=== PATIENT | female | born 1965 | race Caucasian/White ===

== ENCOUNTER 2024-01-15 16:01 | Outpatient (OUT) | payer BC, SELFPAY | END 2024-01-15 16:02 | disposition home or self-care (01) | LOC: SLEEP 16:01 | PROVIDERS: PCP Family Medicine; Visit Provider Family Medicine | DX: G47.33 Obstructive sleep apnea (adult) (pediatric) (principal) | CPT/HCPCS: 95806 ==

== ENCOUNTER 2024-02-20 20:59 | Outpatient (OUT) | payer BC, SELFPAY ==
--- OUTSIDE RECORDS SUMMARY | 2024-02-20 21:04 | XMS_ITS ---
Patient Summarization (C-CDA 2.1 CCD) Created on: February 20, 2024 ANTOINETTE SAVAGE : 1965 Sex: Female Author Organization Sample organization Care Team Providers Care Digester Name Role Phone Garrett Crowe Unavailable Unavail able *SELF, REFERRED Unavailable Unavailable Debbie Valencia Unavailable Unavailable Garrett Crowe Unavailable Unavail able Debbie Valencia Unavailable Unavailable Garrett Crowe Unavailable Unavail able Debbie Valencia Unavailable Unavailable DINORA JULES Referring Unavailable DEBBIE VALENCIA Primary Care Unavailable DEBBIE VALENCIA Attending Unavailable DEBBIE VALENCIA Attending Unavailable DEBBIE VALENCIA Referring Unavailable DEBBIE VALENCIA Referring Unavailable DEBBIE VALENCIA Primary Care Unavailable DEBBIE VALENCIA Attending Unavailable DEBBIE VALENCIA Admitting Unavailable Allergies Allergy Classification Reported Allergen(s) Allergy Type Date of Onset Reaction(s) Facility (1 source) Shellfish; Translations: [shellfish] Propensity to adverse reactions to food (disorder) [facility] Repository (1 source) Sulfamethoxazole ; Translations: [sulfamethoxazol e] Drug Allergy [facility] (1 source) MSG; Translations: [MSG] Propensity to adverse reactions to food (disorder) [facility]ository Encounters Encounter Date Encounter Type Care Provider Facility Start: 01-02-2024 ambulatory DEBBIE VALENCIA Facil ity:[facility] Start: 01-01-2024 End: 01-02-2024 ambulatory DEBBIE VALENCIA Not Available Start: 12-26-2023 End: 12-27-2023 ambulatory DEBBIE VALENCIA Not Available Start: 12-07-2023 End: 12-08-2023 ambulatory [facility] Start: 12-07-2023 Encounter for gynecological examination (general) (routine) without abnormal findings [facility] Start: 11-14-2023 End: 11-14-2023 ambulatory DEBBIE VALENCIA Not Available Start: 04-30-2018 Patient encounter Garrett Crowe Facility:[facility] Start: 04-30-2018 Patient encounter Garrett Crowe Facility:[facility] Payers Date Payer Category Payer Unknown [id number] 1965 Unknown [id number] 2.16.8 [id number] 1965 Unknown [id number] 2.16.84 [id number] 1965 Unknown [id number] 2.16.84 [id number] 1965 Unknown [id number] 2.16.84 [id number] 1965 Unknown [id number] 2.16.84 [id number] 1965 Unknown [id number] 2.16.84 [id number] 1965 Unknown [id number] 2.16.8 [id number] Problems Active Problems Problem Classification Problem Date Documented Date Episodic/Chronic Immunizations and screening for infectious disease (1 source) Encounter for screening for human papillomavirus (HPV); Translations: [Encounter for screening for human papillomavirus (HPV)] Onset: 12-07-2023 Episodic Unclassified (2 sources) Pain in right lower leg / M79.661(ICD-10) Onset: 04-30-2018 Unclassified (2 sources) Pain in right knee / M25.561(ICD-10) Onset: 04-30-2018 Past or Other Problems Problem Classification Problem Date Documented Da te Episodic/Chronic Unclassified (1 source) Pain in right lower leg; Translations: [Pain in right lower leg] Onset: 04-30-2018 Unclassified (1 source) Pain in right knee; Translations: [Pain in right knee] Onset: 04-30-2018 Results Test Name Value Interpretation Reference Range Facility Coding Summaryon 01-04-2024 Coding Summary HTMLBase 64 NecmpoimXYm9xUf+PGhlYWQ+TW0GLIQmP3 3hwYMbgX2qB6OBYXuRKgdlJGYPMIsJYfUe kjSkAO6roYZzCZWr IC8+CK7rXPYpOmtnySDgw7P8iGF9A75tls 9uUXuetIA0HDYcWnVlbmesa5ldhMj8GYef NmluOyBt QQZlrW93DJN8rY23Oo90kGUfxKHjn7raqO x5IpPqXWCaNWC9jFtcPJwvf5FxULTsZ78d eDXxc7R2 BIKaeBvubNFrRpIaaDX6rF6oYNngrorss1 pufepfKww0to32aLTio4O9nPZ9W2ApadM3 IGJvbGQg DsvbcOCNsP3ibqebm7bujzkgDfTqGIVfZL a7VJl1YGNvpFbhIhFtOE97CPF4SHLlipCn T2AdEDUr nHxfPdJ5t0A0Wc7AJ5CBWxvgD3RZOINJOY wvdGQ+XS16cs61W9ZlDxsfGpa4GHMrFYM4 vJI4kA6h PCZkMExup8Z2iQP8N4ElrrWffm4dz1pkUU BmDKxjG84arPPnl5X0KLOotCL1RCZubFna SzDkqA97 Oyc+NPJxuUkvu8UmAhwil2dil1ozxAb9Pc ifFJQykwBflQzcTFF4n7OhKo9tDFKdhXZ5 yPK5lF6a NnQlRiU2KMcrD904DxEgbZWgCftsX40kE4 JvdXA+YDXgJaa9KATejGzfLB0mZ3QcUKUn bmctbGVm yCppDW5fTWIyfmksTWWanC3eCBLaH5x0Gc MoEeE1PZnjS8JzORVxbhkyFp31rT4rVlNd OcC5BCrq Q7YbjwQ0XLRoxRVkEKcfPBZ1Z61uu0R8KG AqAAGyTRV3tJY5iM9ksWprpsqytTQwpHaq dmVydGlj LUgqBSsyR135MCTntEoyAhTpISbqWqWUDD RlOiAgMDQvMTgvMjAyNDwvdGQ+PHRkIHN0 eWxlPSAn bWXqNUtxYi6feYmabAyxQM4hGROuerjkED XehW8sLAHgpOWdaKlzIF2yRXTkubcnu703 OiAxMHB0 ZJIvmLJbX2QwhE3yWlEdDHIdTTUaR0VelI OmQXtmN955XCjsWtE4TIZejxZvF8WoARUk aWduOiB0 n7P0Wv0Hl6XermmnF8NdoCNlGoZwWzqxMK f9K6IwAleneEO+YI84PABaDX93CKb7ONJ5 eWxlPSdi SDVsB9YeqN4vXcWqHIBwZBIaBfc+PHRhYm ofWMfwWFGiSRymVBJwZwFpuNgqKN1tAr0e ZGVyLWNv tKbpaBQmIpFqj2wdWFUyHDpoWW7emGssM9 EtpLN9YLFjk7j5Fn68H87dH2GzeRW+PGNv xMY4oCB3 cA7oIbYeBqP8WNlbE899XaHpwEAtNkxrf1 swi7mazAq3DeG1LCFjfrPimGrhKOY0g3Gx Ol60K31g DGnjGNWgHKWxQIFlVPIahChrrd7udI4eNg 8+STZvrLN5nHO2vN0uHbGyCtI7WCizE793 InRvcCIv Euynt0ybu3yrsEx7PrAeBINoouVphTmuLO Y0a0HpOj82G8SphNpov5FgRph7mw24uFFi n3D1kZZ5 C0FdPVHajstdiKSthLgdEJ4pPGVysheeUU PznM8wZUSoI5o1SfMiBcL4QFbiN1QuaeH5 IGJvbGQg SNJamJHAoT8kgtjta7dvmmtlLrBrWFMlVS o8TKt5TXCxxFmtQkDdRKM2FsJ7XBT1pJIw dV7tkAzi qksggU8fMvi+CKB3fAAzkHLBQV5oYcljmN Q+PROqVKP6tHvhUTmiSCCcoV8aZULdG7g8 OiAwLjA1 LHyrC7SyahH5GKThkUTyIFKchWGXsW2kup xzb3trhurrPwEfBUPfKYq4QBn3EZKneHtq OiBsZWZ0 XcA5QOC1fYKwhA2baGnjbnghvS9iTyf+Qm hzwYnzDST8HHb9Z2FjIzg9FONrzJvlGW8p cGFkZGlu Jp5ygOcooVrbTY9qTTBsjtncu239AxPev3 qtQZSkoOCzHRdlDSW1D97xc0B4OJWmLZOm QHI7dWJ2 jQ7ozKthbtkuvRJwaTmvwzOglKeyWMbjNH mdU463ECQdjJoqEfZhVIb1H0EhWcy1RNSn sFmqSX6d kXWhRLqrBn7ijBhhzInfVN0fFYXlrjfud8 97ZhElk6dbYVKiyVNtJKxyZYG9R80pc7N7 ICMwMDAw HFU3fZY5jP2mkRmbqwsixHJrjDpsixBrwT neATrfOUknQ581AVErmDvkOrZtlRj5J0Zl Dov4SYFv qXwzOV1cvADsBBfbNi8ghZhaaIrlRH8qHR Zdurabz791EiJmm0ndVJFglMXcJCywSNZ5 A43zr9E0 QCFjRJYsFUX8uNT1eL8aaTfjbexymNSxcK guseRzcRdbRJcgFMeoM568CKPwpBjfMbCx dGllbnQg OVqmTJz5A0XeDbkmlVR+BI78QMCvAD91vZ OnhIBgv8alcLt1PbMqKQYlNYS1bJcjNYhv r8UsUOLi E95wiNKnk7J2EZBzdQiegODmYkPgcBQ0wC 9pLGnipertb0vjkuqzSxhqa8pjwr19hO02 I04uOMji ODPmHQNaJSDeOCYhvWmhda8tiG2cGq3+PG XjqVC2nEI2sS3mSXBmMtE9RRthO513TvRt cCIvPjxj z7mbc2idfLa5BhP2XYGoonTcpNhwFZX3d2 ZzFf62P78dQVznLWPnHEFsFIQpDGMmhMxs vf1boZ1i Ii8+VVWepAT2vTL0vX9sKlCrFgS3DYhyW7 80HtUrnIKlVerrX53fB5IgvTH+PHRyPjx0 ZCBzdHls KM8tfAUgFSbaId4dGMX0TdOtOtSbUWgxK1 JbOATqsftpeigurEH0CVJhIWRucG62Zo6g dDogMTBw fPOVqG0mixyar3wenzvjZvGfCZEkCBn7JO p3EPXaqRvbDkVoZMW7VlZ1MCP3tAEpdX7y bGlnbjog hN4qK2GwKPBtppgtBb73vG4kZkJmBxY3JM luOyc+PCLXFK0GOARGVNDZVODHI7ZTMjVE WTwvdGQ+ FSKpAWF1vWkoBInyWBSrcD0tUVJiZ7y9Ob TaEzW0DJqhO0FqTTHwywocWr24mE8kUtYs XvZ8IDbb X4TjyqQ1CDMwpBCkHDhhVOU7K32lx7M0NI YbEAFhHCK6jXZ3zR7pqQboscjptHWtaLcz dmVydGlj NXdaCYmhG786ULIgtSpmShQ7OgU5DtS2Uj K9O2DwNug4ZVEcaGaoWX0vzIOdBCaeRp0l aWdodDog XT2kDNRbjfaeSCCjvG6hKTUztJKwgVfxNV 2xUJGjwhyzj711XnYeLXS8EEXgsRPoK4Hk pU5jBmAn DNYiARJmL3GigHDgXGmmL953REfzJhZ9DV ByloUnA9VfBPBroQgxKrN1z3I6Ke32InDB ZWFyczwv dGQ+VJTyKWR0mAhbLTvmEGHslC5bHORdQ0 r6GzWoVzP9NWdzX1BpAACvhtevMg29jR2c OiAwLjA1 YUoeS7GgwsR5CJExjWEvRFiaFNY8V14uy6 N0CWElWWNgJMT7cBZ0lB9knElygojwnICp dDsgdmVy iMdjCWtkWFgfP933PACrzBmmOvPKKEYWPB wvdGQ+GGFnRMC6dOktKSmxLSGocW8jSXTe J3i8HkJw TbT6QQtmE7YsGKAynwxzFk43pM6zHrJiWk G4CKdqO8EnidA6PYGggRIcMAttRVS2Z52a s2W5XYWx MURqMKD8uBZ5cL1kzGazgwnazKYhqSqymo ShnUntEWkwMDneB132JRGzrSneRtXsP9Ki cmluZyBP cVKxXFKmEO81AV75RF17C2YcZopmhCKpnD U+PHRhYmxlIHdpZHRoPScxMDAlJyBzdHls VB8kBp7y KKIcPREtaJyzkLPvHcAil7hdSEMaPBgyWD 6fbYmjB2KavKK2UMFme1a5Lu96C82gO0Du dXA+PGNv nQS3lZY4pN1zQnDoBaF1VZhtD987NyIhoS ZfIrfxo9msl7gzfUb8VrUgDDVcmgPvhGbh YQF4v7Ac Ti14L47kFIktWEHaRRLyBEDwYPPbgTgmzc 5bjD8wQr8+PYUzuCN6eFU7oS7hGbYiPdM7 KKawW132 HwYmtQFfUufsU42hL3TtlJU+HMBhRet0HE VglMozQO7hjCNxJZldRk4yCVI5JtFdByTu SFhtM7Ah WUOxqmbpdsaenAW0NLQrOCCxrY14Ev3ygN uqXf4gBONjSVM3ITUygZFxA1UejQ0pDzQj MDAwMDAw A9FxqYMmOKbqS060WWwhBlS6AEEqsoUeB8 JhHYCwjOgvOdS8a1N9Bg2MqRzkuHRkQC7r TmFtZTo8 Z1ImKey2HJJczCytWU5ohWKhNOqpQa7jeP quwDzrSA3yYWFxmorfh866JoZot0iuSZTv cHQgVGlt BBN3F45dl5J0BDBnRJUmUMG1pDI5rV7vzM pgnjpqdNKfqXhhfcTuiOjsJBjxYQtkO744 IHRvcDsn VkXRBtq2P3YgEyk2GIXxcZdpXS4dlQAtFN qsDe0ewEcbyWloSP5nPPNejbxny503FpLr p3daVZYm aKDlNCevEIG8H50sq8B7PGWgPKXoSFT4uZ Y7yD3ynSpxwwtshFRomUiwhfMslMleKZvr OGayH657 ZJOtmCdjXj5IJvz6E4GfZmd0EPIclVpiYS 7nvQJeZSxtNm7eqGmpuJwiRQ1bXZHdcjop y990PaEf e9lzVKYypEKyCRvqOIY8O09rz2O0QHJjAT VmAOX1zIO1nR7jpDrlipotbKRrpZqqpdOr dGljYWwt SBigY854PQHltIubRsKjmZMsUuacyQI+PC 92ll46H2BfYhgcGnw1GIWsVRS1mXT4jI0m MTAwJScg c3R (more content not included)... Normal [facility] Provider Orderson 12-29-2023 Provider Orders [id number] [facility] BI MAMMOGRAM SCREENING TOMOS YNTHESIS BILATERALon 12-26-2023 BI MAMMOGRAM SCREENING TOMOSYNTHESIS BILATERAL This is a summary report. The complete report is available in the patient's medical record. If you cannot access the medical record, please contact the sending organization for a detailed fax or copy. EXAMINATION: BI MAMMOGRAM SCREENING TOMOSYNTHESIS BILATERAL CLINICAL HISTORY:screening COMPARISON: December 02, 2021. RESULT: Digital mammography and 3D tomosynthesis of bilateral breasts was performed. Density: Almost entirely fatty [1] Overall appearance is stable. Typically benign calcifications. There is no suspicious mass, asymmetry, architectural distortion, or calcification IMPRESSION: BIRADS 2 - Benign Follow-up: Routine Screening Mamm Board Certified Radiologists. Accredited by the ACR and FDA. MAMMOGRAPHY IS VERY IMPORTANT TO YOUR HEALTH. THE [employer] GUIDELINES RECOMMEND THAT WOMEN 40 YEARS OF AGE AND OLDER SHOULD HAVE A MAMMOGRAM EVERY YEAR. A REMINDER LETTER WILL BE SENT AT THE APPROPRIATE TIME. THIS FACILITY UTILIZES A REMINDER SYSTEM TO ENSURE ALL PATIENTS RECEIVE REMINDER NOTIFICATIONS AT THE APPROPRIATE TIME BASED ON THE RECOMMENDATIONS OF THIS EXAM. THIS INCLUDES REMINDERS FOR ROUTINE SCREENING MAMMOGRAMS, DIAGNOSTIC MAMMOGRAMS IN WHICH THE PATIENT IS ASKED TO RETURN FOR ADDITIONAL VIEWS, OR OTHER BREAST IMAGING INTERVENTIONS WHEN APPROPRIATE. THE PATIENT WILL BE PLACED IN THE APPROPRIATE REMINDER SYSTEM INCLUDING A REMINDER AT THE APPROPRIATE TIME FOR ANY PENDING ADDITIONAL VIEWS. TRANSCRIBED BY: ELECTRONICALLY SIGNED BY: Bay Mcdaniel MD Normal Not Available XR CHEST 2 VIEWSon 4 XR CHEST 2 VIEWS EXAMINATION: XR CHEST 2 VIEWS CLINICAL HISTORY: chest pain COMPARISONS: February 15, 2019 1348 hours FINDINGS: Two views of the chest are submitted. The cardiac silhouette is of normal size configuration. Pulmonary vascular unremarkable. Right sided trachea. There is a faint ill-defined density seen on the lateral view. No focal infiltrates. No effusions. No Pneumothoraces. IMPRESSION: Faint ill-defined density best seen on the lateral view. Recommend CT scan without IV contrast to further evaluate ELECTRONICALLY SIGNED BY: Kevin Neff MD Normal Not Available Cytologyon 12-07-2023 Cytology Normal [facility] Comment on above: Result Comment: [facility] [address] [place] [address] Gynecologic Cytology Consultation Patient Name:ANTOINETTE SAVAGE:1965 (Age: 58)Gender:FTaken:4Reported:12/25/2023hysician(s):Dinora Jules M.D. ([phone])Copy To: Rec. #:[id number]: #[id number] Final Cytologic Interpretation ThinPrep Pap Test (Vaginal): Satisfactory for evaluation. NEGATIVE FOR INTRAEPITHELIAL LESION OR MALIGNANCY. Numerous neutrophilic leukocytes are present. Comment: This ThinPrep slide could not be successfully imaged by the [employer] ThinPrep Imaging System so it was manually screened. jja/12/25/2023 Interpretation performed at [facility], [address] [place] [address], License number: [id number]. Electronically Signed Out By JESSICA Piña(ASCP) Date of Last Menstrual Period: 02/2009 hyst Other Clinical Conditions: Total Hysterectomy Clinical History: hpv neg 03/02/2016 & 06/09/22 Z01.419 Meter Tester exam wo/abn findings Z11.51 Screening for HPV Source of Specimen ThinPrep Pap Test (Vaginal) Thin Prep Pap (DRUM FILLER) Fee Code(s): G0123, G0145, G0145 US Renal Arteries Comp.on US Renal Arteries Comp. CLINICAL HISTORY: Primary hypertension. Hematuria. COMPARISON: CT abdomen and pelvis 02/19/2018 TECHNIQUE: Transabdominal ultrasound of the kidneys and urinary bladder was performed, with Doppler analysis for evaluation of renal artery stenosis. FINDINGS: The study is moderately limited by the patient's body habitus. Both kidneys are normal in size, position and morphology, with renal cortex echogenicity within normal limits. There are no significantly elevated velocities or waveform changes to suggest significant renal artery stenosis, hydronephrosis, visualized nephrolithiasis, abnormal perinephric collections, solid or cystic renal masses identified. The urinary bladder or is unremarkable in appearance. Both ureteral jets are identified. The visualized abdominal aorta is unremarkable. Maximum systolic velocity within the mid abdominal aorta is approximately 40 cm/s; the right renal artery 43 cm/s; the left renal artery 33 cm/s. The right kidney measures approximately 10.8 x 5.0 x 4.1 cm in length, with renal cortical thickness of approximately 1.2 cm. The left kidney measures approximately 10.4 x 5.8 x 5.3 cm in length, with renal cortical thickness of approximately 1.2 cm. IMPRESSION: NO EVIDENCE OF RENAL ARTERY STENOSIS. NEGATIVE LIMITED RENAL AND URINARY BLADDER ULTRASOUND. Report reported and signed by Magen Dunn on 02/08/2022 0749 Normal [facility] Q - URINALYSIS WITH REFLEX T O MICROSCOPICon 12-07-2021 Appearance (U) CLEAR Normal CLEAR [facility] Comment on above: Order Comment: [facility] 95U Testing performed at: [facility], [address] [place] [address], [address] [place] [address], [phone], Business Office Representative: Florentino Luis MD [facility] Collection Date/Time: [id number] [facility] Results Received Date/Time: [facility] Reported Date/Time: FASTING: NO Performed By: #### [id number] #### [facility] Default [address] [place] [address] Bilirubin Ql (U) Negative Normal NEGATIVE [facility] Comment on above: Order Comment: [facility] 95U Testing performed at: [facility], [address] [facility], [address] [place] [address], [phone], Business Office Representative: Florentino Luis MD [facility] Collection Date/Time: [id number] [facility] Results Received Date/Time: [facility] Reported Date/Time: FASTING: NO Performed By: #### [id number] #### [facility] Default [address] [place] [address] Color (U) YELLOW Normal YELLOW [facility] Comment on above: Order Comment: [facility] 95U Testing performed at: [facility], [place] [facility], [address] [place] [address], [address] [place] [address], [address] [place] [address], Business Office Representative: Florentino Luis MD [facility] Collection Date/Time: [facility] Results Received Date/Time: [facility] Reported Date/Time: FASTING: NO Performed By: #### [id number] #### [facility] Default [address] [place] [address] Glucose Ql (U) Negative Normal NEGATIVE [facility] Comment on above: Order Comment: [facility] 95U Testing performed at: [facility], [place] [facility], [address] [place] [address], [address] [place] [address], [address] [place] [address], Business Office Representative: Florentino Luis MD [facility] Collection Date/Time: [facility] Results Received Date/Time: [facility] Reported Date/Time: FASTING: NO Performed By: #### [id number] #### [facility] [address] [place] [address] Ketones Ql (U) Negative Normal NEGATIVE [facility] Comment on above: Order Comment: [facility] 95U Testing performed at: [facility], [place] [facility], [address] [place] [address], [address] [place] [address], [address] [place] [address], Business Office Representative: Florentino Luis MD [facility] Collection Date/Time: [facility] Results Received Date/Time: [facility] Reported Date/Time: FASTING: NO Performed By: #### [id number] #### [facility] [address] [place] [address] Leukocyte esterase Test strip Ql (U) Negative Normal NEGATIVE [facility] Comment on above: Order Comment: [facility] 95U Testing performed at: [employer], [place] [facility], [address] [place] [address], [address] [place] [address], [address] [place] [address], Business Office Representative: Florentino Luis MD [facility] Collection Date/Time: [facility] Results Received Date/Time: [facility] Reported Date/Time: FASTING: NO Performed By: #### [id number] #### [facility] [address] [place] [address] Nitrite Ql (U) Negative Normal NEGATIVE [facility] Comment on above: Order Comment: [facility] 95U Testing performed at: [employer], [place] [facility], [address] [place] [address], [address] [place] [address], [address] [place] [address], Business Office Representative: Florentino Luis MD [facility] Collection Date/Time: [facility] Results Received Date/Time: [facility] Reported Date/Time: FASTING: NO Performed By: #### [id number] #### [facility] [address] [place] [address] OCCULT BLOOD Negative Normal NEGATIVE [facility] Comment on above: Order Comment: [facility] 95U Testing performed at: [employer], [place] [facility], [address] [place] [address], [address] [place] [address], [address] [place] [address], Business Office Representative: Florentino Luis MD [facility] Collection Date/Time: [facility] Results Received Date/Time: [facility] Reported Date/Time: FASTING: NO Performed By: #### [id number] #### [facility] [address] [place] [address] pH (U) 5.5 [pH] Normal 5.0-8.0 [facility] Comment on above: Order Comment: [facility] 95U Testing performed at: [employer], [place] [facility], [address] [place] [address], [address] [place] [address], [address] [place] [address], Business Office Representative: Florentino Luis MD [facility] Collection Date/Time: [facility] Results Received Date/Time: [facility] Reported Date/Time: FASTING: NO Performed By: #### [id number] #### [facility] Default [address] [place] [address] Protein Ql (U) Negative Normal NEGATIVE [facility] Comment on above: Order Comment: [facility] 95U Testing performed at: [facility] [facility], [address] [place] [address], [address] [place] [address], [address] [place] [address], Business Office Representative: Florentino Luis MD [facility] Collection Date/Time: [facility] Results Received Date/Time: [facility] Reported Date/Time: FASTING: NO Performed By: #### [id number] #### [facility] [address] [place] [address] Specific gravity (U) [Rel density] 1.022 Normal 1.001-1.03 5 [facility] Specialist Comment on above: Order Comment: [facility] 95U Testing performed at: [facility], [facility], [address] [place] [address], [address] [place] [address], [address] [place] [address], Business Office Representative: Florentino Luis MD [facility] Collection Date/Time: [facility] Results Received Date/Time: [facility] Reported Date/Time: FASTING: NO Performed By: #### [id number] #### [facility] [address] [place] [address] SCREENING MAMMOGRAM W/LAUREN, BILATERAL*on 12-02-2021 SCREENING MAMMOGRAM W/LAUREN, BILATERAL* COMPARISON: Dating back to October 09, 2018. TECHNIQUE: 2D and 3D Tomosynthesis of the right and left breasts was performed. FINDINGS: Breast composition demonstrates almost entirely fat. Overall appearance is stable. Typically benign calcifications. No suspicious microcalcifications, dominant mass lesions, or distortion is present. IMPRESSION: BI-RADS 2- Benign Mammogram Report reported and signed by Bay Mcdaniel on 12/02/[address] [facility] Complete Blood Counton 10-13 Erythrocyte distribution width (RBC) [Ratio] 14.2 % Normal 11.0-15.0 [facility] Comment on above: Performed By: #### CMP, VITD, LIPD, CBC, TSH reflex FT4 #### [facility] [address] [place], [place] [id number] Hematocrit (Bld) [Volume fraction] 42.3 % Normal 35.0-47.0 [facility] Specialist Comment on above: Performed By: #### CMP, VITD, LIPD, CBC, TSH reflex FT4 #### [facility] [address] [place], [place] [id number] Hemoglobin (Bld) [Mass/Vol] 13.4 g/dL Normal 11.6-15.5 [facility] Specialist Comment on above: Performed By: #### CMP, VITD, LIPD, CBC, TSH reflex FT4 #### [facility] [address] [place], [place] [id number] MCH (RBC) [Entitic mass] 27.5 pg Normal 27.0-33.0 [facility] Specialist Comment on above: Performed By: #### CMP, VITD, LIPD, CBC, TSH reflex FT4 #### [facility] [address] [place], [place] [id number] MCHC (RBC) [Mass/Vol] 31.7 g/dL Low 32.0-36.0 [facility] Specialist Comment on above: Performed By: #### CMP, VITD, LIPD, CBC, TSH reflex FT4 #### [facility] [address], [place] [id number] MCV (RBC) [Entitic vol] 87 fL Normal 80-100 [facility] Examiner Comment on above: Performed By: #### CMP, VITD, LIPD, CBC, TSH reflex FT4 #### [facility] [address], [place] [id number] Platelet mean volume (Bld) [Entitic vol] 10.60 fL Normal 7.50-12.50 [facility] Specialist Comment on above: Performed By: #### CMP, VITD, LIPD, CBC, TSH reflex FT4 #### [facility] [address], [place] [id number] Platelets (Bld) [#/Vol] 304 10*3/uL Normal 140-400 [facility] Examiner Comment on above: Performed By: #### CMP, VITD, LIPD, CBC, TSH reflex FT4 #### [facility] [address], [place] [id number] RBC (Bld) [#/Vol] 4.88 10*6/uL Normal 3.90-5.20 [facility] Examiner Comment on above: Performed By: #### CMP, VITD, LIPD, CBC, TSH reflex FT4 #### [facility] [address], [place] [id number] RDW-SD 44.7 fL Normal 37.0-50.0 [facility] Examiner Comment on above: Performed By: #### CMP, VITD, LIPD, CBC, TSH reflex FT4 #### [facility] [address], [place] [id number] WBC (Bld) [#/Vol] 9.0 10*3/uL Normal 3.8-11.0 [facility] Examiner Comment on above: Performed By: #### CMP, VITD, LIPD, CBC, TSH reflex FT4 #### [facility] [address], [place] [id number] Comprehensive Metabolic Pane sabrina 10-13-2021 Albumin [Mass/Vol] 4.5 g/dL Normal 3.6-5.1 [facility] Examiner Comment on above: Performed By: #### CMP, VITD, LIPD, CBC, TSH reflex FT4 #### [facility] [address], [place] [id number] Albumin/Globuli n [Mass ratio] 1.7 {ratio} Normal 1.0-2.5 [facility] Examiner Comment on above: Performed By: #### CMP, VITD, LIPD, CBC, TSH reflex FT4 #### [facility] [address], [place] [id number] ALP [Catalytic activity/Vol] 98 U/L Normal 35-119 [facility] Examiner Comment on above: Performed By: #### CMP, VITD, LIPD, CBC, TSH reflex FT4 #### [facility] [address], [place] [id number] ALT [Catalytic activity/Vol] 32 U/L Normal 6-33 [facility] Examiner Comment on above: Result Comment: 08/18/2021 Female referen ce range changed. Performed By: #### C MP, VITD, LIPD, CBC, TSH reflex FT4 #### [facility] Laboratory [address], [place] [id number] Anion gap [Moles/Vol] 18 mmol/L Normal 12-20 [facility] Plans Examiner Comment on above: Result Comment: Effective 09/23/2019 refer ence range changed. Performed By: #### C MP, VITD, LIPD, CBC, TSH reflex FT4 #### [facility] [address], [place] [id number] AST [Catalytic activity/Vol] 27 U/L Normal 9-34 [facility] Specialist Comment on above: Performed By: #### CMP, VITD, LIPD, CBC, TSH reflex FT4 #### [facility] [address], [place] [id number] Bilirubin [Mass/Vol] 0.48 mg/dL Normal 0.30-1.20 [facility] Specialist Comment on above: Performed By: #### CMP, VITD, LIPD, CBC, TSH reflex FT4 #### [facility] [address], [place] [id number] BUN/CREA 21 Ratio Normal 6-22 [facility] Specialist Comment on above: Performed By: #### CMP, VITD, LIPD, CBC, TSH reflex FT4 #### [facility] [address], [place] [id number] Calcium [Mass/Vol] 9.7 mg/dL Normal 8.6-10.2 [facility] Specialist Comment on above: Performed By: #### CMP, VITD, LIPD, CBC, TSH reflex FT4 #### [facility] [address], [place] [id number] Chloride [Moles/Vol] 101 mmol/L Normal 98-107 [facility] Specialist Comment on above: Performed By: #### CMP, VITD, LIPD, CBC, TSH reflex FT4 #### [facility] [address], [place] [id number] CO2 [Moles/Vol] 25 mmol/L Normal 20-31 [facility] Specialist Comment on above: Performed By: #### CMP, VITD, LIPD, CBC, TSH reflex FT4 #### [facility] [address], [place] [id number] Creatinine [Mass/Vol] 0.7 mg/dL Normal 0.6-1.4 [facility] Specialist Comment on above: Performed By: #### CMP, VITD, LIPD, CBC, TSH reflex FT4 #### [facility] [address], [place] [id number] eGFRAA 104 mL/min/1.73m2 Normal >60 [facility] Specialist Comment on above: Performed By: #### CMP, VITD, LIPD, CBC, TSH reflex FT4 #### [facility] [address], [place] [id number] eGFRNAA 85 mL/min/1.73m2 Normal >60 [facility] Specialist Comment on above: Performed By: #### CMP, VITD, LIPD, CBC, TSH reflex FT4 #### [facility] [address], [place] [id number] Globulin (S) [Mass/Vol] 2.7 g/dL Normal 1.9-3.7 [facility] Specialist Comment on above: Performed By: #### CMP, VITD, LIPD, CBC, TSH reflex FT4 #### [facility] [address], [place] [id number] Glucose [Mass/Vol] 90 mg/dL Normal 65-99 [facility] Specialist Comment on above: Result Comment: For FASTING Glucose --- ADA reference ranges: Normal 65-99 mg/dl Prediabetes 100-125 Diabetes >/= 126 Performed By: #### C MP, VITD, LIPD, CBC, TSH reflex FT4 #### [facility] [address], [place] [id number] Potassium [Moles/Vol] 4.8 mmol/L Normal 3.5-5.5 [facility] Specialist Comment on above: Performed By: #### CMP, VITD, LIPD, CBC, TSH reflex FT4 #### [facility] [address], [place] [id number] Protein [Mass/Vol] 7.2 g/dL Normal 6.1-8.1 [facility] Specialist Comment on above: Performed By: #### CMP, VITD, LIPD, CBC, TSH reflex FT4 #### [facility] [address], [place] [id number] Sodium [Moles/Vol] 139 mmol/L Normal 135-146 [facility] Specialist Comment on above: Performed By: #### CMP, VITD, LIPD, CBC, TSH reflex FT4 #### [facility] [address], [place] [id number] Urea nitrogen [Mass/Vol] 15 mg/dL Normal 7-25 [facility] Plans Examiner Comment on above: Performed By: #### CMP, VITD, LIPD, CBC, TSH reflex FT4 #### [facility] [address], [place] [id number] Lipid Panelon 10-13-2021 Cholesterol [Mass/Vol] 194 mg/dL Normal 125-200 [facility] Specialist Comment on above: Result Comment: Low risk < 200mg/dL Borderline risk 201-239 mg/dl High risk > or equal to 240 Performed By: #### C MP, VITD, LIPD, CBC, TSH reflex FT4 #### [facility] [address], [place] [id number] Cholesterol in HDL [Mass/Vol] 54 mg/dL Normal >40 [facility] Plans Examiner Comment on above: Result Comment: High Cardiovascular Risk HDL <40 mg/dL Low Cardiovascular Risk HDL > or equal to 60 mg/dl Performed By: #### C MP, VITD, LIPD, CBC, TSH reflex FT4 #### [facility] [address], [place] [id number] Cholesterol in LDL [Mass/Vol] 117 mg/dL Normal [facility] Plans Examiner Comment on above: Result Comment: LDL ATP III CLASSIFICATI ON LDL less than 100 mg/dl Optimal LDL 100-129 mg/dl Near or above optimal LDL 130-159 Borderline high LDL 160-189 High LDL greater than 189 mg/dl Very High Performed By: #### C MP, VITD, LIPD, CBC, TSH reflex FT4 #### [facility] [address], [place] [id number] Cholesterol in VLDL [Mass/Vol] 23 mg/dL Normal [facility] Specialist Comment on above: Performed By: #### CMP, VITD, LIPD, CBC, TSH reflex FT4 #### [facility] [address], [place] [id number] Cholesterol.tot al/Cholesterol in HDL [Mass ratio] 4 {ratio} Normal [facility] Plans Examiner Comment on above: Performed By: #### CMP, VITD, LIPD, CBC, TSH reflex FT4 #### [facility] [address], [place] [id number] Triglyceride [Mass/Vol] 114 mg/dL Normal 30-150 [facility] Plans Examiner Comment on above: Result Comment: TRIG ATPIII CLASSIFICATI ONS TRIG less than 150 mg/dl Normal TRIG 150-199 mg/dl Borderline High TRIG 200-500 mg/dl High TRIG greather than 500 mg/dl Very High Performed By: #### C MP, VITD, LIPD, CBC, TSH reflex FT4 #### [facility] [address], [place] [id number] TSH w/ Reflex to Free T4on 0 10-13-2021 TSH 1.980 uIU/mL Normal 0.400-4.[address] [facility] Plans Examiner Comment on above: Performed By: #### CMP, VITD, LIPD, CBC, TSH reflex FT4 #### [facility] [address], [place] [id number] Vitamin D 25-OHon 10-13-2021 VIT D 25 OH 39 ng/ml Normal >29 [facility] Plans Examiner Comment on above: Result Comment: Vitamin D Status Deficiency <20 ng/mL Insufficiency 20-29 ng/mL Optimal 30-100 ng/mL Possible Toxicity >=150 ng/mL Performed By: #### C MP, VITD, LIPD, CBC, TSH reflex FT4 #### [facility] [address], [place] [id number] CNOVon 10-08-2019 CNOV Office Visit (ORTHMN ) ANTOINETTE SAVGAE ([id number]) 1965 F Date Time Provider Department 10/08/19 11:30 RAH YOUNGBLOOD During your visit today, we recorded the following information about you: Weight Height 89.8 kg 1.499 m Rah Nix PA-C 10/08/2019 2:12 PM Signed Orthopaedic Provider Note / MSK SPECIALTY EXAM: HPI: Patient states she is self-referred, requested consultation, opinion, advice, evaluation, suggestions, direction for left knee pain, osteoarthritis, treatment and surgical options. A copy of this office note is being sent to the requesting physician through MyPractice (includes [employer]) or mail or facsimile. Patient interviewed and examined. Body mass index is 39.99 kg/m?. Reviewed OARRS report. Problem list reviewed. Presents today complaining of knee problems on the left side it's really messed up right now , right knee stiffness and right calf pain Occurring for 2 years. Patient claims that she was recovering from her right knee arthroscopy and went into a deep squat, was unable to depend upon her right knee to help her arise, and so she put full weight on the left leg, felt significant anteromedial pain. The pain is described as constant and located globally about the knee but most pain is anteromedial. Also c/o a shifting sensation, catching, then a pop and loosening of the knee, along with swelling Pain level : 6 (0-10) Assistive devices: No Medications for pain: Naproxen, with mild improvement Medications and allergies reviewed and updated. PAST MEDICAL HISTORY Diagnosis Date - Asthma - Endometriosis - Osteopenia - Surgical menopause PAST SURGICAL HISTORY Procedure Laterality Date - [facility] DELIVERY - HYSTERECTOMY HX total - KNEE SCOPE,MENISECTOMY,MED OR LAT Right 2017 - SALPINGECTOMY OR OOPHERECTOMY-ECTOPIC bilateral Social History Tobacco Use - Smoking status: Never Smoker - Smokeless tobacco: Never Used Substance Use Topics - Alcohol use: No Comment: 2 drinks a year - Drug use: No Occupation: Not employed PHYSICAL EXAM: All other systems deferred. GENERAL: Obese female in NAD. HABITUS: Obese GAIT: Normal, the patient did not have trouble getting onto the exam table. Right and left hips and ankles FROM without pain or limitation. Bilateral UE movement without pain or limitation. KNEE EXAM: Left: Alignment: Neutral Range of motion is 0 degrees in extension and 110 degrees of flexion. Extension La degrees Pain with ROM: Yes, pain with flexion Effusion: Slight Erythema: No Ecchymosis: No Warmth: No Tender to the palpation of Medial joint line Pain with patellar compression: Yes Stability: Anterior/Posterior stable and Varus/Valgus stable Patellofemoral crepitus: No Hip Exam: flexion to 100+ degrees, full extension, internal/external rotation adequate and no pain with log roll Skin ulcers: No Venous Stasis: No Cellulitis: No Quad Atrophy: No Previous Incisions: None Popliteal fullness: No Neurovascular Status: Sensation Intact, Moves foot and ankle up AND down and 2+ dorsalis pedis Right: Alignment: Neutral Range of motion is 0 degrees in extension and 110 degrees of flexion. Extension La degrees Pain with ROM: No Effusion: None Erythema: No Ecchymosis: No Warmth: No Tender to the palpation of None Pain with patellar compression: No Stability: Anterior/Posterior stable and Varus/Valgus stable Patellofemoral crepitus: No Hip Exam: flexion to 100+ degrees, full extension, internal/external rotation adequate and no pain with log roll Skin ulcers: No Venous Stasis: No Cellulitis: No Quad Atrophy: No Previous Incisions: Arthroscopic portals Popliteal fullness: No Neurovascular Status: Sensation Intact, Moves foot and ankle up AND down and 2+ dorsalis pedis RADIOGRAPHS (reviewed and summarized): RESULT: Minimal tricompartmental degenerative changes of the knees greater on the right. ?No joint effusion. No acute fracture or dislocation. There are no carl erosions. DIAGNOSIS: Left knee internal derangement, pain ASSESSMENT AND PLAN: Recommend weight loss, starting a course of physical therapy and have MRI of the knee completed. RTC PRN, pending results of the MRI. More than 50% of this 45 minute visit were spent counseling the patient. Rah Nix MS, PA-C Referring Provider: SELF [200] Allergies As of Date: 10/08/2019 Noted Allergy Reaction CEPHALEXIN 10/02/2018 2 - Rash SULFA (SULFONAMIDE ANTIBIOTICS) 08/01/2011 4 - Hives Comments: severe Date Reviewed: 10/08/2019 Reviewed by: Vanessa Troncoso - Fully Assessed Reason for Visit: Swelling [205] Knee Pain [132] New [665364] Primary Visit Diagnosis:Internal derangement of left knee [M23.92] Other Visit Diagnoses:Chronic pain of left knee [M25.562, G89.29] Primary osteoarthritis of right knee [M17.11] Chronic pain of right knee [M25.561, G89.29] Strain of calf muscle, right, initial encounter [W90.866U] Order(s):CONSULT TO PHYSICAL THERAPY [9061] Order #: [id number]: 1 FUTURE MRI KNEE WO/W IVCON LT [[id number]] Order #: [id number] FUTURE iv contrast (will be provided with radiology test)MRI knee LT Inject, intravenously, once for 1 dose. No IV access, insert saline lock prior to the beginning of sedation, infusion, injection of imaging exam. Discontinue saline lock post exam. If Pt. has a central line or IVAD, may access for administration according to line specific nursing protocol. Once exam is complete flush line and de-access according to line specific nursing protocol in the MR contrast administration guidelines link.Disp: 1 EachRfl: 0 Prescriptions as of 10/08/2019 Sig: OMEGA 3 ORAL Take by mouth. GLUCOSAMINE COMPLEX ORAL Take 1 tablet by mouth once d* IV CONTRAST (RADIOLOGY PROCED* MRI knee LT Inject, intraveno* AZELASTINE 137 MCG (0.1 %) NA* Use 1 Taft in each nostril t* FLUTICASONE PROPIONATE 50 MCG* Use 1 Taft in each nostril o* MONTELUKAST 10 MG TABLET Take 10 mg by mouth daily at * CETIRIZINE 10 MG TABLET Take 10 mg by mouth once jk* SUDAFED PE ORAL Take by mouth. MUPIROCIN 2 % NASAL OINTMENT Use 1 application in the nose* NAPROXEN 500 MG TABLET Take 1 tablet by mouth twice * Patient not taking: Reported on 10/02/2018 BECLOMETHASONE DIPROPIONATE 4* Inhale 2 Puffs as instructed * MOMETASONE 50 MCG/ACTUATION N* Use 2 Sprays in the nose. DESLORATADINE 5 MG TABLET Take 1 tablet by mouth once d* ALBUTEROL SULFATE HFA 90 MCG/* Inhale 1-2 Puffs as instructe* OLOPATADINE 0.1 % EYE DROPS 1 Drop. both eyes one time da* FAMOTIDINE 20 MG TABLET Take 1 tablet by mouth. prn Problem List As Of Date 10/08/2019 Noted Resolved SPRAIN OF ANKLE NEC [S93.499A, S96.819A] 04/09/2004 Prescriptions ordered this encounter Disp Refills Start End IV CONTRAST (RADIOLOGY PROCEDURE) 1 Ea* 0 10/08/2019 10/09/2019 Class: In Office Sig: MRI knee LT Inject, intravenously, once for 1 dose. No IV access, insert saline lock prior to the beginning of sedation, infusion, injection of imaging exam. Discontinue saline lock post exam. If Pt. has a central line or IVAD, may access for administration according to line specific nursing protocol. Once exam is complete flush line and de-access according to line specific nursing protocol in the MR contrast administration guidelines link. Disposition: Return if symptoms worsen or fail to improve. Follow-up and Disposition History Recorded Encounter Status:Closed by RAH NIX PA-C on 10/08/19 Normal [facility] MRI KNEE WO/W IVCON LTon MRI KNEE WO/W IVCON LT * * *Final Report* * * DATE OF EXAM: Oct 08 2019 3:17PM [facility] 0214 - MRI KNEE WO/W IVCON LT / PROCEDURE REASON: multiple diagnoses * * * * Physician Interpretation * * * * EXAMINATION: MRI LEFT KNEE WITHOUT AND WITH CONTRAST CLINICAL HISTORY: OtherMeniscal injury suspected Knee pain, xray internal derangement TECHNIQUE: Multiplanar, multisequence imaging of the left knee was performed before and after intravenous administration of 18 mL Dotarem. COMPARISON: Left knee radiographs 10/08/2019 RESULT: MENISCI: Medial Meniscus: Slight irregularity and increased signal of the posterior meniscal root consistent with fraying. Degenerative signal the posterior horn and meniscal body. Lateral Meniscus: Intact. Borderline discoid lateral meniscus. LIGAMENTS: ACL: Intact PCL: Intact MCL: Intact LCL Complex: Intact CARTILAGE: Medial Femoral Condyle: Small area(s) of high grade (greater than 50% thickness) partial thickness cartilage loss and or fissuring involving the weightbearing femoral condyle Medial Tibial Plateau: Normal Lateral Femoral Condyle: Normal Lateral Tibial Plateau: Small area(s) of low grade (less than 50% thickness) partial thickness cartilage loss and or fissuring Patella: Small area(s) of high grade (greater than 50% thickness) partial thickness cartilage loss and or fissuring involving the medial patellar facet and lateral patellar facet Trochlea: Small area(s) of high grade (greater than 50% thickness) partial thickness cartilage loss and or fissuring involving the central femoral trochlea TENDONS: The distal quadriceps and patellar tendons are intact. The popliteus tendon is intact. BONES AND MARROW: No evidence of acute fracture or pathologic marrow replacing lesion. Tiny tricompartmental osteophytes. MUSCLES: Muscle bulk and signal intensity are normal. JOINT FLUID AND SYNOVIUM: Small to moderate joint effusion. No synovitis. Trace fluid signal in the medial head of the gastrocnemius-semimembranosus bursa. Small fluid is noted extending along the popliteus recess/bursa. OTHER: No encapsulated or enhancing mass is visualized. IMPRESSION: MEDIAL MENISCUS DEGENERATIVE SIGNAL AND POSTERIOR MENISCAL ROOT FRAYING. MILD TRICOMPARTMENTAL DEGENERATIVE ARTHRITIS, GREATEST INVOLVING THE PATELLOFEMORAL COMPARTMENT. LEFT KNEE JOINT EFFUSION. Button Pusher: MIRIAM Transcribe Date/Time: Oct 08 2019 4:01P Dictated by : JULIO UP MD This examination was interpreted and the report reviewed and electronically signed by: JULIO UP MD on Oct 08 2019 4:12PM EST [id number] Normal [facility] PROGRESSon 10-08-2019 PROGRESS HNO ID: [id number] Author: Rah Nix Service: ? Author Type: Physician Process Owner Type: Progress Notes Filed: 10/08/2019 2:12 PM Note Text: Orthopaedic Provider Note / MSK SPECIALTY EXAM: HPI: Patient states she is self-referred, requested consultation, opinion, advice, evaluation, suggestions, direction for left knee pain, osteoarthritis, treatment and surgical options. A copy of this office note is being sent to the requesting physician through MyPractice (includes DrKuailexueneGennio) or mail or facsimile. Patient interviewed and examined. Body mass index is 39.99 kg/m?. Reviewed OARRS report. Problem list reviewed. Presents today complaining of knee problems on the left side it's really messed up right now , right knee stiffness and right calf pain Occurring for 2 years. Patient claims that she was recovering from her right knee arthroscopy and went into a deep squat, was unable to depend upon her right knee to help her arise, and so she put full weight on the left leg, felt significant anteromedial pain. The pain is described as constant and located globally about the knee but most pain is anteromedial. Also c/o a shifting sensation, catching, then a pop and loosening of the knee, along with swelling Pain level : 6 (0-10) Assistive devices: No Medications for pain: Naproxen, with mild improvement Medications and allergies reviewed and updated. PAST MEDICAL HISTORY Diagnosis Date - Asthma - Endometriosis - Osteopenia - Surgical menopause PAST SURGICAL HISTORY Procedure Laterality Date - [facility] DELIVERY - HYSTERECTOMY HX total - KNEE SCOPE,MENISECTOMY,MED OR LAT Right 2018 - SALPINGECTOMY OR OOPHERECTOMY-ECTOPIC bilateral Social History Tobacco Use - Smoking status: Never Smoker - Smokeless tobacco: Never Used Substance Use Topics - Alcohol use: No Comment: 2 drinks a year - Drug use: No Occupation: Not employed PHYSICAL EXAM: All other systems deferred. GENERAL: Obese female in NAD. HABITUS: Obese GAIT: Normal, the patient did not have trouble getting onto the exam table. Right and left hips and ankles FROM without pain or limitation. Bilateral UE movement without pain or limitation. KNEE EXAM: Left: Alignment: Neutral Range of motion is 0 degrees in extension and 110 degrees of flexion. Extension La degrees Pain with ROM: Yes, pain with flexion Effusion: Slight Erythema: No Ecchymosis: No Warmth: No Tender to the palpation of Medial joint line Pain with patellar compression: Yes Stability: Anterior/Posterior stable and Varus/Valgus stable Patellofemoral crepitus: No Hip Exam: flexion to 100+ degrees, full extension, internal/external rotation adequate and no pain with log roll Skin ulcers: No Venous Stasis: No Cellulitis: No Quad Atrophy: No Previous Incisions: None Popliteal fullness: No Neurovascular Status: Sensation Intact, Moves foot and ankle up AND down and 2+ dorsalis pedis Right: Alignment: Neutral Range of motion is 0 degrees in extension and 110 degrees of flexion. Extension La degrees Pain with ROM: No Effusion: None Erythema: No Ecchymosis: No Warmth: No Tender to the palpation of None Pain with patellar compression: No Stability: Anterior/Posterior stable and Varus/Valgus stable Patellofemoral crepitus: No Hip Exam: flexion to 100+ degrees, full extension, internal/external rotation adequate and no pain with log roll Skin ulcers: No Venous Stasis: No Cellulitis: No Quad Atrophy: No Previous Incisions: Arthroscopic portals Popliteal fullness: No Neurovascular Status: Sensation Intact, Moves foot and ankle up AND down and 2+ dorsalis pedis RADIOGRAPHS (reviewed and summarized): RESULT: Minimal tricompartmental degenerative changes of the knees greater on the right. ?No joint effusion. No acute fracture or dislocation. There are no carl erosions. DIAGNOSIS: Left knee internal derangement, pain ASSESSMENT AND PLAN: Recommend weight loss, starting a course of physical therapy and have MRI of the knee completed. RTC PRN, pending results of the MRI. More than 50% of this 45 minute visit were spent counseling the patient. Rah Nix MS, PASidneyC [facility] PROGRESS HNO ID: [id number] Author: Renata Kaplan) Eduin Leung Service: Radiology Author Type: Barn Worker Type: Progress Notes Filed: 10/08/2019 9:47 AM Note Text: Radiology Service Progress Note PATIENT NAME: Antoinette Savage DATE OF SERVICE: October 08, 2019 TIME: 9:46 AM PATIENT IDENTITY VERIFICATION COMPLETED USING TWO (2) IDENTIFIERS: Name and Date of confirmed by patient verbally. PATIENT GENDER DATA: Female. status: : No status: N/A PATIENT RELEVANT IMPLANT DATA REVIEWED: Not Applicable RADIOLOGY DEPARTMENT: General X-ray: Exam(s) Completed: Lower Extremity X-Ray(s): Knee, AP / Lat / Tunne / Merchant Bilateral and Wt. Bearing: PERIPHERAL IV DATA: Not applicable SIGNED BY: RT Patsy October 08, 2019 9:46 AM [facility] PROGRESS HNO ID: [id number] Author: Eduin Campos (Tech) Service: ? Author Type: Barn Worker Type: Progress Notes Filed: 10/08/2019 3:18 PM Note Text: Radiology Service Progress Note DATE OF SERVICE: October 08, 2019 TIME: 2:25 PM PATIENT IDENTITY VERIFICATION COMPLETED USING TWO (2) STANDARD IDENTIFIERS: Name and Date of confirmed by patient verbally. PATIENT GENDER DATA: Female. status: : No status: NO. PATIENT RELEVANT IMPLANT DATA REVIEWED: Yes ALLERGIES: Reviewed and unchanged CONTRAST ALLERGY: NO. EXAM: MRI - CONTRAST TYPE: GROUP II PERIPHERAL IV DATA: Ambulatory: A peripheral IV was started in the Left antecubital site with a Butterfly: 23 gauge. RADIOLOGY DEPARTMENT: MR; Exam(s) Completed: Lower MSK: Knee, left SIGNATURE: Eduin Campos PATIENT NAME: Antoinette Savage DATE: October 08, 2019 TIME: 2:25 PM Normal [facility] XR KNEE 4V AP/PA/LAT/MERCH B ILon 10-08-2019 XR KNEE 4V AP/PA/LAT/MERCH SUZY * * *Final Report* * * DATE OF EXAM: Oct 08 2019 9:46AM AOX [id number] - XR KNEE 4V AP/PA/LAT/MERCH SUZY / PROCEDURE REASON: Pain * * * * Physician Interpretation * * * * EXAMINATION: XR KNEE 4V AP/PA/LAT/MERCH SUZY HISTORY: chronic bilateral knee pain. primary pain and swelling in left knee. right knee history of meniscus repair. Pain . TECHNIQUE: XR KNEE 4V AP/PA/LAT/MERCH SUZY Laterality: BILATERAL Number of different views (projections): 4 each M: XB_1 COMPARISON: 05/14/2017 RESULT: Minimal tricompartmental degenerative changes of the knees greater on the right. No joint effusion. No acute fracture or dislocation. There are no carl erosions. IMPRESSION: Minimal degenerative changes greater on the right. Button Pusher: MIRIAM Transcribe Date/Time: Oct 08 2019 10:18A Dictated by : GARRETT MUNSON MD This examination was interpreted and the report reviewed and electronically signed by: GARRETT MUNSON MD on Oct 08 2019 10:19AM EST [id number] Normal [facility] DX-XR Knee Complete Left IMP Sharda 10-01-2019 DX-XR Knee Complete Left IMPORT Images were obtained outside of [facility] [id number] Normal [facility] CNOVon 11-07-2018 CNOV Office Visit (OTOLLN ) ANTOINETTE SAVAGE ([id number]) 1965 F Date Time Provider Department 11/07/18 2:20 PM AFTAB TRIPLETT During your visit today, we recorded the following information about you: Temperature 98.4 degrees Aftab Triplett MD 11/07/2018 2:58 PM Signed SECTION OF RHINOLOGY, SINUS AND SKULL BASE SURGERY Head and Neck [place], [facility] NOTE This patient is a new patient. They are seen at the request of: Aliyah Smith MD [id number] [facility] [id number] This will be communicated to the referring provider via mail or the electronic medical record CC: No chief complaint on file. ASSESSMENT and PLAN: Antoinette Savage is a 53 year old female with mild chronic maxillary sinusitis, nasal obstruction. - Diagnostic rigid nasal endoscopy today. - Patient would like to think about surgery at this time, she will call us if she would like to proceed - Will continue flonase bid and astelin bid - Follow up prn HPI: Antoinette Savage is a 53 year old female who presents at the request of Aliyah Smith MD for evaluation of sinus issues. She has previously been recommended functional nasal surgery for her nasal obstruction, but given sinus symptoms is here for evaluation of potential combined procedure for endoscopic sinus surgery at the time of functional rhinoplasty. Sense of smell and taste is intermittently decreased. She notes a lot of congestion, pressure and drainage which is worse in the morning. Current medical therapy includes: flonase once daily, zyrtec once daily. Singulair prn. She uses saline spray in her nose regularly. She does not like neti pots or saline rinses. She does have a diagnosis of asthma. The asthma has been reasonably well controlled with singulair, albuterol, and Qvar. She has had allergy testing and believes she is allergic to: many environmental allergens. She had allergen immunotherapy about 8 years ago and did not notice much benefit with these. She has never had a reaction, specifically wheezing or hives, as a result of taking NSAIDs. She has never had previous nasal or sinus surgery. CT sinus today was reviewed with patient, this shows mild disease in bilateral maxillary sinuses only. 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 montelukast (SINGULAIR) 10 mg tablet Take 10 mg by mouth daily at bedtime. cetirizine (ZYRTEC) 10 mg tablet Take 10 mg by mouth once daily. phenylephrine HCl (SUDAFED PE ORAL) Take by mouth. mupirocin (BACTROBAN) 2 % nasal ointment Use 1 application in the nose three times daily. And to external nasal skin for 10 days naproxen (NAPROSYN) 500 mg tablet Take 1 tablet by mouth twice daily with meals. TAKE WITH FOOD (Patient not taking: Reported on 10/02/2018 ) beclomethasone (QVAR) 40 mcg/Actuation INHALATION inhaler Inhale 2 Puffs as instructed once daily. azelastine (ASTELIN) 137 mcg NASAL nasal spray Use 1 Taft in each nostril twice daily. Use in each nostril as directed (Patient not taking: Reported on 10/02/2018 ) mometasone (NASONEX) 50 mcg/Actuation NASAL nasal spray Use 2 Sprays in the nose. desloratadine (CLARINEX) 5 mg ORAL tablet Take 1 tablet by mouth once daily. albuterol HFA 90 mcg/Actuation INHALATION inhaler Inhale 1-2 Puffs as instructed four times daily as needed. olopatadine (PATANOL) 0.1 % OPHTHALMIC ophthalmic solution 1 Drop. both eyes one time daily if needed famotidine (PEPCID AC) 20 mg ORAL tablet Take 1 tablet by mouth. prn No current facility-administered medications for this visit. ALLERGIES: ALLERGIES Allergen Reactions - Cephalexin Rash - Sulfa (Sulfonamide * Hives severe ROS: 14 point review of systems was otherwise normal apart from that below or in the HPI REVIEW OF RADIOLOGICAL FILMS AND RECORDS: Previous operative, pathology, and radiological reports were reviewed and filed in the permanent chart. PHYSICAL EXAM: Constitutional: ? General appearance: well developed, well nourished, without obvious deformities ? Communication: the patient speaks with a normal voice without hoarseness Head and Face: ? Overall appearance: no obvious scars, lesions or masses ? Parotid glands: no masses or tenderness ? Facial strength: normal and equal bilaterally . No tenderness to palpation Eyes: PERRLA EOMI Ears, Nose, Mouth, Throat: ? External ears and nose: normal in appearance, without scars, lesions, or masses ? Ears: both left and right external auditory canals and tympanic membranes are normal ? Nasal exam: the mucosa is pink, the septum is deviated left, and the visible inferior turbinates are normal on anterior rhinoscopy ? Oral cavity and oropharynx: The lips, the oral mucosa, hard and soft palates, tongue, tonsil area, and posterior pharyngeal mucosa are without lesions ? Neck: the neck appears symmetric without scars, and on palpation is without masses or lymphadenopathy. Submandibular glands palpable without masses or tenderness Respiratory: . Normal respirations on inspection Neurological . Normal mental status . Normal orientation . Cranial Nerves 3-12 intact PROCEDURE NOTE: Procedure: Diagnostic rigid nasal endoscopy Surgeon: Aftab Triplett MD Anesthesia: Topical Afrin and lidocaine Findings: A 30-degree rigid endoscope was passed through the patient's bilateral nares via a 3 pass maneuver. The first pass was along the floor of the nose to the nasopharynx. The second pass was to the area of the middle meatus. The third pass was to the sphenoethmoidal recess. Septum: Deviated left, no perforations Right nasal cavity: Inferior turbinate: 2+ Inferior meatus: Clear, no discharge, no polyps/masses/lesions Middle meatus: Clear, no discharge, no polyps/masses/lesions Middle turbinate: Normal in size Sphenoethmoidal recess: Clear, no discharge, no polyps/masses/lesions Left nasal cavity: Inferior turbinate: 2+ Inferior meatus: Clear, no discharge, no polyps/masses/lesions Middle meatus: Clear, no discharge, no polyps/masses/lesions Middle turbinate: Normal in size Sphenoethmoidal recess: Clear, no discharge, no polyps/masses/lesions Nasopharynx: Clear, no discharge, no masses/lesions Aftab Triplett MD Section of Rhinology, Sinus and Skull Base Surgery Section of Regional Otolaryngology [facility] Head and Neck [place] Referring Provider: ALIYAH SMITH [[id number]] Allergies As of Date: 11/07/2018 Noted Allergy Reaction CEPHALEXIN 10/02/2018 2 - Rash SULFA (SULFONAMIDE ANTIBIOTICS) 08/01/2011 4 - Hives Comments: severe Date Reviewed: 11/07/2018 Reviewed by: Faith Jackson Ma - Fully Assessed Reason for Visit: Second Opinion [501] Cmt: sinus Reason For Visit History Recorded Visit Diagnosis:Chronic sinusitis, unspecified location [J32.9] Order(s):azelastine (ASTELIN) 0.1% nasal sprayUse 1 Taft in each nostril twice daily. Use in each nostril as directedDisp: 1 BottleRfl: 0 Prescriptions as of 11/07/2018 Sig: AZELASTINE 137 MCG (0.1 %) NA* Use 1 Taft in each nostril t* FLUTICASONE 50 MCG/ACTUATION * Use 1 Taft in each nostril o* MONTELUKAST 10 MG TABLET Take 10 mg by mouth daily at * CETIRIZINE 10 MG TABLET Take 10 mg by mouth once kj* SUDAFED PE ORAL Take by mouth. MUPIROCIN 2 % NASAL OINTMENT Use 1 application in the nose* NAPROXEN 500 MG TABLET Take 1 tablet by mouth twice * Patient not taking: Reported on 10/02/2018 BECLOMETHASONE DIPROPIONATE 4* Inhale 2 Puffs as instructed * MOMETASONE 50 MCG/ACTUATION N* Use 2 Sprays in the nose. DESLORATADINE 5 MG TABLET Take 1 tablet by mouth once d* ALBUTEROL SULFATE HFA 90 MCG/* Inhale 1-2 Puffs as instructe* OLOPATADINE 0.1 % EYE DROPS 1 Drop. both eyes one time da* FAMOTIDINE 20 MG TABLET Take 1 tablet by mouth. prn Problem List As Of Date 11/07/2018 Noted Resolved SPRAIN OF ANKLE NEC [S93.698A, S91.531D] INVALID FOR* Prescriptions ordered this encounter Disp Refills Start End AZELASTINE 137 MCG (0.1 %) NASAL SPR* 1 Jez* 0 11/07/2018 Route: EACH NOSTRIL Sig: Use 1 Taft in each nostril twice daily. Use in each nostril as directed Medications Discontinued During This Encounter azelastine (ASTELIN) 137 mcg NASAL n* 1 Jez* 0 08/16/2011 11/07/2018 Route: EACH NOSTRIL Sig: Use 1 Taft in each nostril twice daily. Use in each nostril as directed Patient not taking: Reported on 10/02/2018 Disc: Reason for discontinue is not on file. Disposition: Return if symptoms worsen or fail to improve. Follow-up and Disposition History Recorded Encounter Status:Closed by AFTAB TRIPLETT on 11/07/[address] [facility] [address] SINUS WO IVCONon 11-07-19 CT SINUS WO IVCON * * *Final Report* * * DATE OF EXAM: Nov 07 2018 1:09PM [facility] 0488 - CT SINUS WO IVCON / PROCEDURE REASON: Chronic sinusitis, unspecified location * * * * Physician Interpretation * * * * RESULT: EXAMINATION: CT SINUS WO IVCON CLINICAL HISTORY: Chronic sinusitis, unspecified location. TECHNIQUE: Spiral high resolution axial unenhanced CT images were obtained through the paranasal sinuses with sagittal, coronal reconstructions. MQ: CTSI_1 Dose-Length Product (DLP): 136 mGy*cm. CT Dose Reduction Employed: No dose reduction techniques were required COMPARISON: None. RESULT: RESULT: Post-Surgical Findings: None Sinus Chambers: Mucosal thickening in the inferior maxillary sinuses. The remainder of the paranasal sinuses are clear. There is no air-fluid level. Nasal Cavities: A small polypoid lesion is present in the posterior left nasal cavity (image 34 series 2) measuring 0.7 x 0.4 cm.. Mild rightward nasal septal deviation. Developmental Anomalies: None Ostiomeatal Complex: Patent within the constraints of the study. Other: The visualized mastoid air cells and middle ear cavities are clear. The soft tissues of the face and orbits are within normal limits within the limitations of the study. IMPRESSION: Mild maxillary sinus mucosal thickening. Small polypoid lesion in the posterior left nasal cavity. Mild rightward nasal septal deviation. Transcribe Date/Time: Nov 07 2018 1:25P Dictated by: AFTAB NELSON MD This examination was interpreted and the report reviewed and electronically signed by: AFTAB NELSON MD on Nov 07 2018 1:32PM EST Thank you for allowing us to participate in the care of your patient. Should there be any questions regarding this interpretation, please call [phone]. If you are unable to reach us at the number above, please feel free to contact [facility] at [phone]. [id number] [facility] PROGRESSon 11-07-2018 PROGRESS HNO ID: [id number] Author: Aftab Triplett Service: (none) Author Type: Physician Type: Progress Notes Filed: 11/07/2018 2:58 PM Note Text: SECTION OF RHINOLOGY, SINUS AND SKULL BASE SURGERY Head and Neck [place], [facility] NOTE This patient is a new patient. They are seen at the request of: Aliyah Smith MD [id number] [facility] [id number] This will be communicated to the referring provider via mail or the electronic medical record CC: No chief complaint on file. ASSESSMENT and PLAN: Antoinette Savage is a 53 year old female with mild chronic maxillary sinusitis, nasal obstruction. - Diagnostic rigid nasal endoscopy today. - Patient would like to think about surgery at this time, she will call us if she would like to proceed - Will continue flonase bid and astelin bid - Follow up prn HPI: Antoinette Savage is a 53 year old female who presents at the request of Aliyah Smith MD for evaluation of sinus issues. She has previously been recommended functional nasal surgery for her nasal obstruction, but given sinus symptoms is here for evaluation of potential combined procedure for endoscopic sinus surgery at the time of functional rhinoplasty. Sense of smell and taste is intermittently decreased. She notes a lot of congestion, pressure and drainage which is worse in the morning. Current medical therapy includes: flonase once daily, zyrtec once daily. Singulair prn. She uses saline spray in her nose regularly. She does not like neti pots or saline rinses. She does have a diagnosis of asthma. The asthma has been reasonably well controlled with singulair, albuterol, and Qvar. She has had allergy testing and believes she is allergic to: many environmental allergens. She had allergen immunotherapy about 8 years ago and did not notice much benefit with these. She has never had a reaction, specifically wheezing or hives, as a result of taking NSAIDs. She has never had previous nasal or sinus surgery. CT sinus today was reviewed with patient, this shows mild disease in bilateral maxillary sinuses only. 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 montelukast (SINGULAIR) 10 mg tablet Take 10 mg by mouth daily at bedtime. cetirizine (ZYRTEC) 10 mg tablet Take 10 mg by mouth once daily. phenylephrine HCl (SUDAFED PE ORAL) Take by mouth. mupirocin (BACTROBAN) 2 % nasal ointment Use 1 application in the nose three times daily. And to external nasal skin for 10 days naproxen (NAPROSYN) 500 mg tablet Take 1 tablet by mouth twice daily with meals. TAKE WITH FOOD (Patient not taking: Reported on 10/02/2018 ) beclomethasone (QVAR) 40 mcg/Actuation INHALATION inhaler Inhale 2 Puffs as instructed once daily. azelastine (ASTELIN) 137 mcg NASAL nasal spray Use 1 Taft in each nostril twice daily. Use in each nostril as directed (Patient not taking: Reported on 10/02/2018 ) mometasone (NASONEX) 50 mcg/Actuation NASAL nasal spray Use 2 Sprays in the nose. desloratadine (CLARINEX) 5 mg ORAL tablet Take 1 tablet by mouth once daily. albuterol HFA 90 mcg/Actuation INHALATION inhaler Inhale 1-2 Puffs as instructed four times daily as needed. olopatadine (PATANOL) 0.1 % OPHTHALMIC ophthalmic solution 1 Drop. both eyes one time daily if needed famotidine (PEPCID AC) 20 mg ORAL tablet Take 1 tablet by mouth. prn No current facility-administered medications for this visit. ALLERGIES: ALLERGIES Allergen Reactions - Cephalexin Rash - Sulfa (Sulfonamide * Hives severe ROS: 14 point review of systems was otherwise normal apart from that below or in the HPI REVIEW OF RADIOLOGICAL FILMS AND RECORDS: Previous operative, pathology, and radiological reports were reviewed and filed in the permanent chart. PHYSICAL EXAM: Constitutional: ? General appearance: well developed, well nourished, without obvious deformities ? Communication: the patient speaks with a normal voice without hoarseness Head and Face: ? Overall appearance: no obvious scars, lesions or masses ? Parotid glands: no masses or tenderness ? Facial strength: normal and equal bilaterally . No tenderness to palpation Eyes: PERRLA EOMI Ears, Nose, Mouth, Throat: ? External ears and nose: normal in appearance, without scars, lesions, or masses ? Ears: both left and right external auditory canals and tympanic membranes are normal ? Nasal exam: the mucosa is pink, the septum is deviated left, and the visible inferior turbinates are normal on anterior rhinoscopy ? Oral cavity and oropharynx: The lips, the oral mucosa, hard and soft palates, tongue, tonsil area, and posterior pharyngeal mucosa are without lesions ? Neck: the neck appears symmetric without scars, and on palpation is without masses or lymphadenopathy. Submandibular glands palpable without masses or tenderness Respiratory: . Normal respirations on inspection Neurological . Normal mental status . Normal orientation . Cranial Nerves 3-12 intact PROCEDURE NOTE: Procedure: Diagnostic rigid nasal endoscopy Surgeon: Aftab Triplett MD Anesthesia: Topical Afrin and lidocaine Findings: A 30-degree rigid endoscope was passed through the patient's bilateral nares via a 3 pass maneuver. The first pass was along the floor of the nose to the nasopharynx. The second pass was to the area of the middle meatus. The third pass was to the sphenoethmoidal recess. Septum: Deviated left, no perforations Right nasal cavity: Inferior turbinate: 2+ Inferior meatus: Clear, no discharge, no polyps/masses/lesions Middle meatus: Clear, no discharge, no polyps/masses/lesions Middle turbinate: Normal in size Sphenoethmoidal recess: Clear, no discharge, no polyps/masses/lesions Left nasal cavity: Inferior turbinate: 2+ Inferior meatus: Clear, no discharge, no polyps/masses/lesions Middle meatus: Clear, no discharge, no polyps/masses/lesions Middle turbinate: Normal in size Sphenoethmoidal recess: Clear, no discharge, no polyps/masses/lesions Nasopharynx: Clear, no discharge, no masses/lesions Aftab Triplett MD Section of Rhinology, Sinus and Skull Base Surgery Section of Regional Otolaryngology [facility] Head and Neck [place] Normal [facility] Initial Visit (Orthopaedic S urgery)on 05-20-2018 Initial Visit (Orthopaedic Surgery) Chief ComplaintPT. PRESENTS FOR R. KNEE PAIN History of Present [id number] female comes a see me today. She had surgery in April 2017 for her right knee pool builder meniscus tear her issues really were anterior knee pain at that time and was noted to have significant osteoarthritis in the knee. She comes a see me today for further evaluation she also is complaining of some calf pain today Review of [id number] points were reviewed negative, except as noted in the history of present illness Active Problems Incisional hernia (553.21) (K43.2) Right knee pain (719.46) (M25.561) Past Medical History History of Endometriosis (617.9) (N80.9) History of esophageal reflux (V12.79) (Z87.19) Personal history of asthma (V12.69) (Z87.09) Surgical History History of Section History of Total Abdominal Hysterectomy Family History Family history of Brain Cancer (V16.8) Family history of Lung Cancer (V16.1) Social History Never smoker Allergies Sulfa Drugs Recorded By: Edie Fuentes; 07/30/2013 10:08:26 AM Current Meds EpiPen 2-Serge 0.3 MG/0.3ML BECKI;Therapy: 18Feb2013 to Recorded Dispense: 2 Days ; #:2 BECKI; Refill: 0; KRISTI = N; Record; Last Updated By: Brooks Rudolph; 07/30/2013 10:14:39 AM Fluticasone Propionate 50 MCG/ACT Nasal Suspension;Therapy: [id number] to Recorded Dispense: 30 Days ; #:16 SUSP; Refill: 0; KRISTI = N; Record; Last Updated By: Brooks Rudolph; 07/30/2013 10:14:39 AM NexIUM 40 MG Oral Capsule Delayed Release;Therapy: 11Jul2013 to Recorded Dispense: 15 Days ; #:30 CPDR; Refill: 0; KRISTI = N; Record; Last Updated By: Brooks Rudolph; 07/30/2013 10:14:39 AM Patanol 0.1 % Ophthalmic Solution;Therapy: [id number] to Recorded Dispense: 29 Days ; #:5 SOLN; Refill: 0; KRISTI = N; Record; Last Updated By: Brooks Rudolph; 07/30/2013 10:14:39 AM Qvar 80 MCG/ACT AERS;Therapy: 11Jul2013 to Recorded Dispense: 30 Days ; #:9 AERS; Refill: 0; KRISTI = N; Record; Last Updated By: Brooks Rudolph; 07/30/2013 10:14:39 AM Ventolin HFA 108 (90 Base) MCG/ACT Inhalation Aerosol Solution;Therapy: [id number] to Recorded Dispense: 16 Days ; #:18 AERS; Refill: 0; KRISTI = N; Record; Last Updated By: Brooks Rudolph; 07/30/2013 10:14:39 AM Zyrtec 10 MG TABS;Therapy: (Recorded:30Jul2013) to Recorded Dispense: 0 Days ; #: Sufficient TABS; Refill: 0; KRISTI = N; Record; Last Updated By: Brooks Rudolph; 07/30/2013 10:14:07 AM Physical ExamThis is a pleasant patient. They are alert and oriented x3. They are of normal mood and affect. They are in no acute distress. Their limb is warm and well-perfused. They have intact sensation to light touch in all lower extremity dermatomes. Their quadriceps and hamstring strength is 5 of 5. They can do a straight leg raiseThey have a weak core. They have tight hamstrings. They have one out of three patellofemoral crepitus. They have some mild increased patellar tiltThey have a stable Shayy, negative posterior drawer. No posterior sag. Thye are stable to varus and valgus stress at both 0 and 30They have no effusionThey have no popliteal lymphadenopathy appreciatedTheir skin is intact Results/Data Ultrasound [facility]lex [facility]/ [id number] 05:00PMGarrett Crowe[Apr 30, 2018 7:18PM Garrett Crowe] Reason: Unspecified for Ultrasound [facility]lex [facility]/ Uni Test NameResultFlagReferenceUltrasound Duplex Extrem [facility]/ Uni(Report)Interpreted by: ANN-MARIE WHITE 04/30/18 17:05 Patient Name: ANTOINETTE SAVAGE STUDY: DUPLEX EXTREMITY VEINS LMTD/UNILAT; 04/30/2018 5:00 pm INDICATION: Signs/Symptoms: right calf pain. COMPARISON: None. ACCESSION NUMBER(S): [id number] ORDERING CLINICIAN: GARRETT CROWE TECHNIQUE: Vascular ultrasound of the right lower extremity was performed. Real time compression views as well as Em scale, color Doppler and spectral Doppler waveform analysis was performed. FINDINGS: Evaluation of the visualized portions of the right common femoral vein, proximal, mid, and distal femoral vein, and popliteal vein were performed. Evaluation of the visualized portions of the posterior tibial and peroneal veins were also performed. In addition, evaluation of the contralateral common femoral vein was performed. Limitations: None The evaluated veins demonstrate normal compressibility. There is intact venous flow demonstrating normal respiratory variability and normal augmentation of flow with calf compression. Therefore, there is no ultrasonographic evidence for deep vein thrombosis within the evaluated veins. Respiratory variation and augmentation to calf pressure was noted. IMPRESSION: No sonographic evidence for deep vein thrombosis within the evaluated veins of the right lower extremity. Electronically signed by: ANN-MARIE WHITE 04/30/18 17:05 X-ray show osteoarthritis of the patellofemoral compartment and medial compartment ProcedureUnder sterile conditions the knee was injected with 4 cc of lidocaine 1 cc of Depo-Medrol. The patient tolerated the procedure well. There were no apparent complications. Sterile bandage was applied Diagnoses/Problems Right knee pain (719.46) (M25.561) Right calf pain (729.5) (M79.661) OrdersRight calf pain Ultrasound [facility]/ Uni; Status:Resulted - RequiresVerification,Retrospective Authorization; Done: [id number] 05:00PM Performed:[facility]; Order Comments:US to r/o DVT, s/p surgery; Due:29Jul2018;Ordered; Stat; For:Right calf pain; Ordered By:Garrett Crowe;Reason: Unspecified for Ultrasound Duplex Ext[facility]ins [facility]/ UniLaterality : RightRadiologist to Determine Optimal Study : YWhat are the patient's signs and symptoms? : right calf pain Patient Discussion/SummaryPatient has a right knee which is why she did not do well from her arthroscopy. We offered her an injection she tolerated it well. Based on the issues that she is having with the Pain we are recommending a DVT scan today as well which was negative follow-up as needed. Signatures Electronically signed by : Garrett Crowe MD; May 20 2018 2:03PM EST (Author) Normal Taggled DUPLEX EXTREMITY VEINS LMTD/ UNILATon 04-30-2018 DUPLEX EXTREMITY VEINS LMTD/UNILAT Name: ANTOINETTE SAVAGE STUDY:DUPLEX EXTREMITY VEINS LMTD/UNILAT; 04/30/2018 5:00 pm INDICATION:Signs/Symptoms: right calf pain. COMPARISON:None. ORDERING CLINICIAN:GARRETT CROWE TECHNIQUE:Vascular ultrasound of the right lower extremity was performed. Realtime compression views as well as Em scale, color Doppler andspectral Doppler waveform analysis was performed. FINDINGS:Evaluation of the visualized portions of the right common femoralvein, proximal, mid, and distal femoral vein, and popliteal vein wereperformed. Evaluation of the visualized portions of the posteriortibial and peroneal veins were also performed. In addition,evaluation of the contralateral common femoral vein was performed. Limitations: None The evaluated veins demonstrate normal compressibility. There isintact venous flow demonstrating normal respiratory variability andnormal augmentation of flow with calf compression. Therefore, thereis no ultrasonographic evidence for deep vein thrombosis within theevaluated veins. Respiratory variation and augmentation to calf pressure was noted. IMPRESSION:No sonographic evidence for deep vein thrombosis within the evaluatedveins of the right lower extremity.Electronically signed by: ANN-MARIE WHITE MD Normal [facility] KNEE CMPLT, 4 OR MORE VIEWSo n 04-30-2018 KNEE CMPLT, 4 OR MORE VIEWS Name: ANTOINETTE SAVAGE STUDY:KNEE CMPLT, 4 OR MORE VIEWS; 04/30/2018 3:14 pm INDICATION:Signs/Symptoms: knee pain. COMPARISON:None. ORDERING CLINICIAN:GARRETT CROWE TECHNIQUE:Weightbearing AP, lateral, tunnel and sunrise images of the rightknee were obtained. FINDINGS:There is mild spurring of the patella, femur and tibia. There is no significant joint narrowing. There is no obvious jointeffusion. IMPRESSION:Mild DJD. Electronically signed by: RADHA KENNEDY MD Normal [facility] Medication management note 01-03-2024 Note Date & Type Note Facility 01-03-2024 Note [id number] Clinical Note 01-01-2024 Note Date & Type Note Facility 01-01-2024 Note PROCEDURE: Without IV contrast, axial helical 5 mm slice thickness images of the chest performed. Comparison made with recent chest x-ray report of December 26, 2023. No suspicious lung nodule mass or parenchymal consolidation. No pleural or pericardial effusion. No significant mediastinal or hilar lymphadenopathy. Upper abdominal images are remarkable only for mild diffuse hepatic fatty infiltration. IMPRESSION: Normal. TRANSCRIBED BY: ELECTRONICALLY SIGNED BY: Bay Mcdaniel MD Not Available Summary Purpose Family History No Family History Records FoundNo Family History Records FoundNo Family History Records FoundNo Family History Records FoundNo Family History Records FoundNo Family History Records FoundNo Family History Records Found Advance Directives No Advanced Directives Records FoundNo Advanced Directives Records FoundNo Advanced Directives Records FoundNo Advanced Directives Records FoundNo Advanced Directives Records FoundNo Advanced Directives Records FoundNo Advanced Directives Records Found Additional Source Comments INFORMATION SOURCE (unrecogn ized section and content) DATE CREATED AUTHOR 05/11/2018 [facility] DATE CREATED AUTHOR AUTHOR'S ORGANIZ ATION 05/25/2018 [facility] DATE CREATED AUTHOR AUTHOR'S ORGANIZ ATION 10/09/2019 [facility] DATE CREATED AUTHOR AUTHOR'S ORGANIZ ATION 02/09/2022 [facility] DATE CREATED AUTHOR AUTHOR'S ORGANIZ ATION 12/26/2023 [facility] DATE CREATED AUTHOR AUTHOR'S ORGANIZ ATION 01/06/2024 [facility] DATE CREATED AUTHOR AUTHOR'S ORGANJOSE ATION 02/19/2024 [facility] FOR RECORDS PERTAINING TO PATIENTS WHO ARE OR HAVE BEEN ENROLLED IN A CHEMICAL DEPENDENCY/SUBSTANCEABUSE PROGRAM, SOME INFORMATION MAY BE OMITTED. This clinical summary was aggregated from multiple sources. Caution should be exercised in using it in the provision of clinical care. This summary normalizes information from multiple sources, and as a consequence, information in this document may materially change the coding, format and clinical context of patient data. In addition, data may be omitted in some cases. CLINICAL DECISIONS SHOULD BE BASED ON THE PRIMARY CLINICAL RECORDS. [facility] provides no warranty or guarantee of the accuracy or completeness of information in this document.
== END 2024-02-20 21:00 | disposition home or self-care (01) ==
LOC: SLEEP 21:00
PROVIDERS: PCP Family Medicine; Visit Provider Family Medicine
DX: G47.33 Obstructive sleep apnea (adult) (pediatric) (principal)
CPT/HCPCS: 95811